=== PATIENT | male | born 1975 | race Caucasian/White ===

== ENCOUNTER 2017-01-12 11:56 | Emergency (ER) | payer SELFPAY ==
[2017-01-12 12:13] VITALS: BP 113/71; PULSE 75; RESP 18; TEMP 98.8; O2SAT 93
[2017-01-12] MEDS ORDERED: PROPARACAINE 0.5% 15 ML OPHT DROP OP ONE (12:13)
[2017-01-12] MEDS ORDERED: FLUORESCEIN SODIUM 1 MG STRIP OP ONE (13:03)
--- NOTE | 2017-01-12 13:18 | EDPHY ---
H & P Stated Complaint: scratched in r eye with fingernail playing basketball Time Seen by Provider: 01/12/17 13:08 HPI/ROS: CHIEF COMPLAINT: Right eye pain HISTORY OF PRESENT ILLNESS: The patient presents to the ED with complaints of right eye pain and blurry vision after he was accidentally scratched in the eye why playing basketball. The patient does not were contact lenses or wear glasses. The patient denies significant past medical history. The patient denies any additional acute complaints. He has moderate pain in his right eye. REVIEW OF SYSTEMS: A comprehensive 10 point review of systems is otherwise negative aside from elements mentioned in the history of present illness. Source: Patient - Personal History Current Tetanus/Diphtheria Vaccine: Yes - Medical/Surgical History Hx Asthma: No Hx Chronic Respiratory Disease: No Hx Diabetes: No Hx Cardiac Disease: No Hx Renal Disease: No Hx Cirrhosis: No Hx Alcoholism: No Hx HIV/AIDS: No Hx Splenectomy or Spleen Trauma: No Other PMH: denies - Social History Smoking Status: Never smoked - Physical Exam Exam: Visual Acuity: noted from Nurse's notes. Pupils: equal round and reactive to light EOMI Skin: Periorbital ecchymosis and mild soft tissue swelling noted inferior to the right eye Conjunctivae: Small subconjunctival hemorrhage Cornea: exam with fluorescein shows an approximately 1 cm x 2 mm abrasion noted to the upper aspect of the right cornea Anterior chamber: normal, no hyphema or hypopyon Constitutional: Initial Vital Signs Temperature (C) 37.1 C 01/12/17 12:09 Heart Rate 75 01/12/17 12:09 Respiratory Rate 18 01/12/17 12:09 Blood Pressure 113/71 01/12/17 12:09 O2 Sat (%) 93 01/12/17 12:09 O2 Delivery Mode Room Air Allergies/Adverse Reactions: No Known Allergies Allergy (Verified 01/12/17 12:08) Home Medications: Medication Instructions Recorded NK [No Known Home Meds] 01/12/17 Medical Decision Making ED Course/Re-evaluation: The patient presents to the ED with a corneal abrasion. The patient did have complete relief of pain with topical Ophthetic. The patient will be started on Ocuflox eyedrops. He is advised to follow up with our on-call brakes inspector Dr. Benitez Frias for recheck tomorrow. He is discharged home with customary aftercare instructions and return precautions. - Data Points Medications Given: Discontinued Medications Proparacaine HCl (Alcaine 0.5%) 2 drops OP EDNOW ONE Stop: 01/12/17 12:14 Last Admin: 01/12/17 12:17 Dose: 1 drop Departure - Departure Disposition: Home, Routine, Self-Care Clinical Impression: Right corneal abrasion Condition: Good Instructions: Corneal Abrasion (ED) Additional Instructions: 1. Please apply 1 eye drop 5 times a day for next week to right eye. 2. Please return to the ED for severe pain, markedly worsening symptoms or other concerns. 3. Please follow up with Dr. Benitez Frias from Ophthalmology tomorrow for recheck. 4. Take Ibuprofen or Motrin 600 mg by mouth three times a day. Referrals: Benitez Frias MD [Medical Doctor] - As per Instructions
== END 2017-01-12 13:44 | disposition home or self-care (01) ==
DX: S05.01XA Injury of conjunctiva and corneal abrasion without foreign body, right eye, initial encounter (principal); X58.XXXA Exposure to other specified factors, initial encounter; Y99.8 Other external cause status; Y93.67 Activity, basketball